=== PATIENT | male | born 1980 | race African-American/Black ===

== ENCOUNTER 2022-09-13 01:46 | Emergency (ER) | payer OTHER ==
[~2022-09-13] VITALS: Ht 165.1 cm; Wt 70.0 kg
[2022-09-13 02:10] VITALS: BP 117/77
[2022-09-13] MEDS ORDERED: NAPROXEN500 MG PO (04:43)
== END 2022-09-13 07:15 | disposition home or self-care (01) | DRG 923 ==
LOC: ED 01:46
DX: Z04.3 Encounter for examination and observation following other accident (principal); V49.9XXA Car occupant (driver) (passenger) injured in unspecified traffic accident, initial encounter